=== PATIENT | female | born 1960 | race Caucasian/White ===

== ENCOUNTER 2017-08-19 19:33 | Emergency (ER) | payer BC, OTHER ==
[~2017-08-19] VITALS: Ht 170.2 cm; Wt 90.7 kg
--- NOTE | 2017-08-19 19:59 | Discharge Summary ---
NO DICTATION. 14 Seconds. Intended as right hand. The intended as right hand. Job#: [id number]
[2017-08-19] MEDS ORDERED: HYDROCODONE/APAP 10MG-325MG TAB PO ONE (20:45)
--- NOTE | 2017-08-19 23:09 | Diagnostic Imaging Report ---
EXAM: FOREARM LEFT 2 VIEW, WRIST COMPLETE LEFT, AP and lateral and oblique INDICATION: Fall off of ladder, left wrist and forearm pain COMPARISON: None FINDINGS: BONES: Acute, comminuted, intra-articular fracture through the distal radius with dorsal angulation of the distal fracture fragment. Acute, mildly displaced fracture through the base of the ulnar styloid process. JOINTS: No malalignment. SOFT TISSUES: Normal IMPRESSION: Acute, comminuted, intra-articular impaction type fracture of the distal left radius with dorsal angulation of the distal fracture fragment. Acute, mildly displaced fracture through the base of the ulnar styloid process. No additional fractures of the left forearm. Signed by: Dr. Norma Fried M.D. on 08/19/2017 11:06 PM
[2017-08-20] MEDS ORDERED: ONDANSETRON HCL INJ 2 MG/ML VIAL IV PRN (00:45)
[2017-08-20] MEDS ORDERED: FENTANYL CITRATE/PF 100MCG/2 ML INJ IV ONE (00:45)
[2017-08-20 01:49] VITALS: BP 106/72
--- NOTE | 2017-08-20 02:00 | Diagnostic Imaging Report ---
Exam: Left wrist August 20, 2017 at 0127 hours Indication: Status post reduction Comparison: August 19, 2017 at 2205 hours left wrist x-ray Findings: See impression Impression: Improved alignment status post reduction of the comminuted, displaced, intra-articular fracture of the distal left radius. Stable appearance of mildly displaced fracture through the base of the ulna styloid process. Interval cast placement. Signed by: Dr. Norma Fried M.D. on 08/20/2017 1:57 AM
[2017-08-21] MEDS ORDERED: NORCO 10-325 T1 EACH PO (16:47)
[2017-08-21] MEDS ORDERED: PRAVASTATIN SOD40 MG PO (16:49)
[2017-08-21] MEDS ORDERED: FOLIC ACID1 MG PO (16:49)
[2017-08-21] MEDS ORDERED: LYRICA100 MG PO (16:50)
[2017-08-21] MEDS ORDERED: CYCLOBENZAPRINE10 MG PO (16:50)
[2017-08-21] MEDS ORDERED: LOSARTAN POTAS100 MG PO (16:50)
[2017-08-21] MEDS ORDERED: MELOXICAM15 MG PO (16:51)
[2017-08-21] MEDS ORDERED: LEVOTHYROXINE112 MCG PO (16:51)
[2017-08-21] MEDS ORDERED: TYLENOL WITH C1 EACH PO (16:52)
== END 2017-08-20 01:58 | disposition home or self-care (01) ==
LOC: ER 19:33
DX: S52.592A Other fractures of lower end of left radius, initial encounter for closed fracture (principal); S52.612A Displaced fracture of left ulna styloid process, initial encounter for closed fracture; W11.XXXA Fall on and from ladder, initial encounter; Y92.008 Other place in unspecified non-institutional (private) residence as the place of occurrence of the external cause
CPT/HCPCS: 25605; 73090; 73100; 73110; 99283; J2405

== ENCOUNTER → 2017-08-22 | Day surgery (SDC) | payer BC ==
[~2017-08-22] MED LIST: ACETAMINOPHEN 1000 MG/100 ML IV ONE; BACITRACIN 50,000 UNIT VIAL ONE; BUPIVACAINE HCL 0.5% INJ 30 ML VIAL INJ ONE; CEFAZOLIN SOD 2 GM/D5W 50ML 50 ML IV ONE; CYCLOBENZAPRINE10 MG PO; DEXAMETHASONE SOD PHOS INJ 4 MG/ML VIAL ONE; EPHEDRINE SULFATE INJ 50 MG/10 ML SYR ONE; FENTANYL CITRATE/PF 100MCG/2 ML INJ ONE; FOLIC ACID1 MG PO; LEVOTHYROXINE112 MCG PO; LIDOCAINE HCL 2% LOCAL INJ 5 ML SDV VIAL INJ ONE; LOSARTAN POTAS100 MG PO; LYRICA100 MG PO; MELOXICAM15 MG PO; MIDAZOLAM HCL 2 MG/2 ML VIAL ONE; MORPHINE SULFATE INJ 10 MG/ML ONE; MUPIROCIN 2% OINT 22 GM TUBE ONE; NORCO 10-325 T1 EACH PO; ONDANSETRON HCL INJ 2 MG/ML VIAL ONE; PRAVASTATIN SOD40 MG PO; PROPOFOL IV EMULSION 10 MG/ML 20 ML VIAL ONE; ROCURONIUM BROMIDE 10 MG/ML 5ML VIAL ONE; SEVOFLURANE INHAL SOLN 250 ML PEN BTL ONE; TYLENOL WITH C1 EACH PO
--- OUTSIDE RECORDS SUMMARY | 2017-08-22 10:40 | XMS REPORT ---
[facility] Address Unknown Phone Unavailable Care Team Providers Care Hands Assembler Name Role Phone MADELYN VELÁSQUEZ Unavailable Unavailable Problems This patient has no known problems. Allergies, Adverse Reactions, Alerts This patient has no known allergies or adverse reactions. Medications This patient has no known medications. Results Test Description Test Time Test Comments Text Results Atomic Results Result Comments WRIST LEFT 2 VIEWS [place] [address] Patient Name: DUNG BURTON MR #: [id number] : 1960 Age/Sex: 57/F Req #: [id number] Adm Physician: Ordered by: MADELYN VELÁSQUEZ MD Report #: [id number] Location: ER Room/Bed: ___ Procedure: [id number] DX/WRIST LEFT 2 VIEWS Exam Date: Exam Time: REPORT STATUS: Signed Exam: Left wrist August at 0127 hours Indication: Status post reduction Comparison: August at 2205 hours left wrist x-ray Findings: See impression Impression: Improved alignment status post reduction of the comminuted, displaced, intra-articular fracture of the distal left radius. Stable appearance of mildly displaced fracture through the base of the ulna styloid process. Interval cast placement. Signed by: Dr. Thony Fried M.D. on 08/20/2017 1:57 AM Dictated By: THONY FRIED MD 6 Transcribed By: KIM on 156 COPY TO: MADELYN VELÁSQUEZ MD FOREARM LEFT [address] [facility] [address] [address] Patient Name: DUNG BURTON MR #: [id number] : 1960 Age/Sex: 57/F Req #: [id number] Adm Physician: Ordered by: MANDY SILVERMAN NP Report #: [id number] Location: ER Room/Bed: Procedure: [id number] DX/FOREARM LEFT 2 VIEW Exam Date: 08/19/17 Exam Time: 2210 REPORT STATUS: Signed EXAM: FOREARM LEFT 2 VIEW, WRIST COMPLETE LEFT, AP and lateral and oblique INDICATION: Fall off of ladder, left wrist and forearm pain COMPARISON: None FINDINGS: BONES : Acute, comminuted, intra-articular fracture through the distal radius with dorsal angulation of the distal fracture fragment. Acute, mildly displaced fracture through the base of the ulnar styloid process. JOINTS: No malalignment. SOFT TISSUES: Normal IMPRESSION: Acute, comminuted, intra-articular impaction type fracture of the distal left radius with dorsal angulation of the distal fracture fragment. Acute, mildly displaced fracture through the base of the ulnar styloid process. No additional fractures of the left forearm. Signed by: Dr. Thony Fried M.D. on 08/19/2017 11:06 PM Dictated By: THONY FRIED MD 05 Transcribed By: KIM on 08/19/172305 COPY TO: MANDY SILVERMAN NP WRIST COMPLETE LEFT [facility] [address] [address] Patient Name: DUNG BURTON MR #: [id number] : 1960 Age/Sex: 57/F Req #: [id number] Adm Physician: Ordered by: MADELYN VELÁSQUEZ MD Report #: [id number] Location: ER Room/Bed: ___ Procedure: [id number] DX/WRIST COMPLETE LEFT Exam Date: 08/19/17 Exam Time: 2210 REPORT STATUS: Signed EXAM: FOREARM LEFT 2 VIEW, WRIST COMPLETE LEFT, AP and lateral and oblique INDICATION: Fall off of ladder, left wrist and forearm pain COMPARISON: None FINDINGS: BONES: Acute, comminuted, intra-articular fracture through the distal radius with dorsal angulation of the distal fracture fragment. Acute, mildly displaced fracture through the base of the ulnar styloid process. JOINTS: No malalignment. SOFT TISSUES: Normal IMPRESSION: Acute, comminuted, intra-articular impaction type fracture of the distal left radius with dorsal angulation of the distal fracture fragment. Acute, mildly displaced fracture through the base of the ulnar styloid process. No additional fractures of the left forearm. Signed by: Dr. Thony Fried M.D. on 08/19/2017 11:06 PM Dictated By: THONY FRIED MD 05 Transcribed By: KIM on 08/19/172305 COPY TO: MADELYN VELÁSQUEZ MD
--- OUTSIDE RECORDS SUMMARY | 2017-08-22 10:40 | XMS REPORT | Continuity of Care Document ---
Author Author [facility] Organization [facility] Address [address] [place] [address] Phone Unavailable Care Team Providers Care Hand Silvering Supervisor Name Role Phone MEHRDAD BLANCHARD MD PCP Insurance Providers Guarantor Ailyn Beckett [address] [place] [address] Email NONE [facility] Policy Number [id number] Subscriber's Name Ailyn Beckett Relationship 18 Self / Same As Patient Group Number [id number] Group Name MONI MAC Vaishnavi Effective Date 17 Advance Directives Directive Response Recorded Date/Time Does the patient have an advance directive? No 10/13/09 9:39am If yes, is advance directive on file with [facility]? No 10/13/09 9:39am If not on file with [facility] will patient provide a copy? No 08/20/17 12:34am Do you have a Directive to Physician? No 08/20/17 12:34am Do you have a Medical Power of Beet Worker? No 08/20/17 12:34am Do you have an out of hospital Do Not Resuscitate Order? No 08/20/17 12:34am Do you have any special needs we should be aware of? No 08/20/17 12:34am Do you have a support person here with you today? Yes 08/20/17 12:34am Did patient receive Notice of Privacy Practices? Yes 08/20/17 12:34am Did patient receive patient rights and responsibilities? Yes 08/20/17 12:34am Problems No problem information available. Medications No medication information available. Social History Smoking Status Start Date Stop Date Current every day smoker Hospital Discharge Instructions No hospital discharge instruction information available. Plan of Care Discharge Date 08/20/17 1:58am Disposition HOME, SELF-CARE Condition at Discharge Stable Instructions/Education Provided Fractures - Forearm Sling - Wearing Forms Provided Work/School Excuse Prescriptions See Medication Section Referrals MEHRDAD BLANCHARD MD Address: [address] [place] [address] [id number] COLT CONSTANTINO MD Address: [address] [place] [address] [address] [place] [address] Additional Instructions/Education 1. follow up with orthopedic doctor in 1-2 days without fail 2. return to ed as needed 3. splint sling Functional Status No functional status information available. Allergies, Adverse Reactions, Alerts Allergen Type Severity Reaction Status Last Updated Methocarbamol Allergy Intermediate Active 08/19/17 Sulfamethoxazole Allergy Unknown Active 08/19/17 Trimethoprim Allergy Unknown Active 08/19/17 Metronidazole Allergy Intermediate Active 08/19/17 Immunizations No immunization information available. Vital Signs Acute Vital Signs Vital Response Date/Time Pulse Pulse Rate (adult) 79 bpm (60 - 90) 08/20/2017 1:49am Respiratory Rate 18 bpm (12 - 24) 08/20/2017 1:49am Blood Pressure 106/72 mm Hg 08/20/2017 1:49am Height 5 ft 7 in 08/19/2017 8:49pm Weight 200 lb 08/19/2017 8:49pm Body Mass Index 31.3 kg/m^2 08/19/2017 8:49pm Results No relevant diagnostic test, laboratory data and/or discharge summary information available. Procedures No procedure information available. Encounters Encounter Location Arrival/Admit Date Discharge/Depart Date Attending Provider Departed Emergency Room [facility] 08/19/17 7:33pm 1:58am MADELYN VELÁSQUEZ MD
--- NOTE | 2017-08-24 00:36 | Operative Report ---
DATE OF PROCEDURE: August 22, 2017 PREOPERATIVE DIAGNOSES 1. Comminuted, displaced left distal radius fracture. 2. Acute carpal tunnel syndrome. POSTOPERATIVE DIAGNOSES 1. Comminuted, displaced left distal radius fracture. 2. Acute carpal tunnel syndrome. OPERATIONS/PROCEDURES PERFORMED: Patient underwent: 1. Open reduction internal fixation of a left comminuted distal radius fracture with dorsal plate fixation. 2. Percutaneous pinning of left distal radius fracture. 3. Allograft bone grafting, left distal radius fracture. 4. Left carpal tunnel release. GEAR HOBBER OPERATOR: None. ANESTHESIA: General endotracheal intubation anesthesia. IV FLUIDS: Per the anesthesia record. BRIEF DESCRIPTION OF PATIENT'S OPERATIVE PROCEDURE: Ms. Beckett was taken to the operating room and placed in the supine position on operating room table. Following induction of general anesthesia as well as endotracheal intubation, the patient's left upper extremity was examined under anesthesia. She was found to have a moderately swollen left distal radius with significant swelling into the palm of the hand. Fluoroscopic evaluation of the wrist joint demonstrated a markedly comminuted distal radius fracture with significant dorsal comminution and displacement. There was also a large radial styloid fracture fragment. Prior to surgery, the patient was examined in the preoperative area and patient was found to have progressive numbness and tingling involving her thumb, index, and long finger when compared to her preoperative evaluation in the office. The patient's upper extremity was prepped and draped in standard surgical fashion. The case was begun by attempting a closed reduction of the patient's wrist fracture. This was unsuccessful in reducing the patient's fracture fragments. A dorsal approach was chosen given the degree of comminution and instability dorsally. The incision was carried in the midportion of the wrist, extended proximally over the distal aspect of the radius. This incision was carried through skin only. Blunt dissection was used to deepen the incision to the level of the 4th dorsal wrist compartment. The 4th dorsal compartment was opened and the common extensor tendons were retracted in an ulnar direction. The 3rd dorsal wrist compartment was also opened and the extensor tendon for the thumb was also retracted and protected throughout the remainder of the case. This revealed the markedly displaced distal radius fracture. Case was begun by reducing the radial styloid fracture to the shaft, and a single 0.062 K-wire was used to pin that fragment to the shaft. A 2nd temporary pin was placed beginning at the ulnar styloid and translating just inferior to the articular surface. At this time, a [place] was used to elevate the impacted articular surface to create a more congruent articular surface of the distal radius. Once this was achieved, the wound was copiously irrigated and allograft bone graft was placed in a large defect in the dorsum of the wrist joint. The dorsal cortical surface of the radius was then reduced and a dorsal plate was chosen and affixed to the distal radius transfixing the fracture in its reduced position as well as reducing the large amount of dorsal comminution. This plate was affixed to the distal radius with combination of cortical and locking screws. Repeat fluoroscopic evaluation of the wrist joint demonstrated marked improvement in the alignment of the articular surface with reduction of the radial styloid fracture fragment with some continued volar comminution. The wound was again irrigated. The 3rd and 4th extensor compartments were closed loosely. The wound was closed in a multilayer fashion. Attention was then turned to the volar surface of the patient's hand. The patient had marked swelling and bruising into the palm of the hand. An incision was created along the thenar palmar crease. This incision was carried through the skin only. Blunt dissection was used to deepen the incision to the level of the transverse carpal ligament. The distal edge of the transverse carpal ligament was easily identified and a Norfolk was placed beneath the ligament. The ligament was then released in its entirety. The floor of the carpal canal was evaluated and found to have no abnormalities. Blood and hematoma were expressed from the carpal canal at the time of the carpal tunnel release. This wound was then closed in a single layer fashion. Sterile dressings were applied, and the patient was then provided a well-padded sugar tong splint, awakened and taken to the postanesthesia care unit in stable condition. Job#: [id number]
== END | disposition home or self-care (01) ==
LOC: OR 10:38
PROVIDERS: ATTEND Specialist
DX: S52.572A Other intraarticular fracture of lower end of left radius, initial encounter for closed fracture (principal); G56.02 Carpal tunnel syndrome, left upper limb; I10 Essential (primary) hypertension; E03.9 Hypothyroidism, unspecified; K29.70 Gastritis, unspecified, without bleeding; R53.1 Weakness; M19.90 Unspecified osteoarthritis, unspecified site; F17.210 Nicotine dependence, cigarettes, uncomplicated; Z88.1 Allergy status to other antibiotic agents; Z88.3 Allergy status to other anti-infective agents; Z88.8 Allergy status to other drugs, medicaments and biological substances; W11.XXXA Fall on and from ladder, initial encounter; Z01.810 Encounter for preprocedural cardiovascular examination; Z68.32 Body mass index [BMI] 32.0-32.9, adult
CPT/HCPCS: 25608; 64721; 93005; C1713 ×4; J1100; J2001; J2250; J2270; J2405; 76001

== ENCOUNTER → 2017-10-31 | Outpatient (RCR) | payer BC ==
[~2017-10-31] MED LIST changes: -ACETAMINOPHEN 1000 MG/100 ML IV ONE; -BACITRACIN 50,000 UNIT VIAL ONE; -BUPIVACAINE HCL 0.5% INJ 30 ML VIAL INJ ONE; -CEFAZOLIN SOD 2 GM/D5W 50ML 50 ML IV ONE; -DEXAMETHASONE SOD PHOS INJ 4 MG/ML VIAL ONE; -EPHEDRINE SULFATE INJ 50 MG/10 ML SYR ONE; -FENTANYL CITRATE/PF 100MCG/2 ML INJ ONE; -LIDOCAINE HCL 2% LOCAL INJ 5 ML SDV VIAL INJ ONE; -MIDAZOLAM HCL 2 MG/2 ML VIAL ONE; -MORPHINE SULFATE INJ 10 MG/ML ONE; -MUPIROCIN 2% OINT 22 GM TUBE ONE; -ONDANSETRON HCL INJ 2 MG/ML VIAL ONE; -PROPOFOL IV EMULSION 10 MG/ML 20 ML VIAL ONE; -ROCURONIUM BROMIDE 10 MG/ML 5ML VIAL ONE; -SEVOFLURANE INHAL SOLN 250 ML PEN BTL ONE
== END ==
LOC: OT 10-15 15:56
PROVIDERS: ATTEND Specialist
DX: S52.592D Other fractures of lower end of left radius, subsequent encounter for closed fracture with routine healing (principal); M25.532 Pain in left wrist; M25.632 Stiffness of left wrist, not elsewhere classified; R53.1 Weakness
CPT/HCPCS: 97139

== ENCOUNTER 2017-11-28 11:00 | Outpatient (RCR) | payer BC | END 2017-11-30 | LOC: OT 11:00 | PROVIDERS: ATTEND Specialist | DX: S52.592D Other fractures of lower end of left radius, subsequent encounter for closed fracture with routine healing (principal); M25.532 Pain in left wrist; M25.632 Stiffness of left wrist, not elsewhere classified; R53.1 Weakness ==

== ENCOUNTER 2017-12-26 16:00 | Outpatient (RCR) | payer BC | END 2017-12-31 | LOC: OT 16:00 | PROVIDERS: ATTEND Specialist | DX: S62.102A Fracture of unspecified carpal bone, left wrist, initial encounter for closed fracture (principal) | CPT/HCPCS: 97139 ==

== ENCOUNTER 2018-01-16 12:00 | Outpatient (RCR) | payer BC | END 2018-01-31 | LOC: OT 12:00 | PROVIDERS: ATTEND Specialist | DX: S62.102A Fracture of unspecified carpal bone, left wrist, initial encounter for closed fracture (principal) | CPT/HCPCS: 97139 ==

== ENCOUNTER → 2019-05-29 | Outpatient (CLI) | payer BC, OTHER ==
[~2019-05-29] MED LIST changes: +ALLERGY PO; +ATORVASTATIN CA20 MG PO; +BENICAR20 MG PO; +IOPAMIDOL 370 MG/ML 200 ML INFUS..BTL INJ ONE; +METFORMIN HCL500 MG PO; +MULTI-VITAMIN1 EACH PO; +OMEPRAZOLE40 MG PO; +ORPHENADRINE C100 MG PO; +SODIUM CHLORIDE 0.9% 50ML 50 ML ONE; +SUPER B-50 COM1 EACH PO; +VITAMIN B-121000 MC2 PO; +VITAMIN D34000 UNIT PO
[2019-05-29 09:57] LABS: BLOOD UREA NITROGEN 11 mg/dL (7-26); BUN/CREATININE RATIO 13 (6-25); CREATININE, SERUM 0.87 mg/dL (0.57-1.11); EST GLOMERULAR FILTRATION RATE > 60 ML/MIN (60-)
--- NOTE | 2019-05-29 10:40 | Diagnostic Imaging Report ---
CT of the abdomen and pelvis History: Right upper quadrant pain Comparison: None available. Technique: Multidetector CT scanning of the abdomen and pelvis was performed from the level of the lung bases to the inferior pubic ramus, with IV contrast. DOSE REDUCTION: The examination was performed according to departmental dose-optimization program which includes automated exposure control, adjustment of the mA and/or kV according to patient size and/or use of iterative reconstruction technique. Discussion: The lung bases demonstrate dependent atelectasis. No focal hepatic lesions are identified. The gallbladder is present and nondistended. No radiopaque gallstones are identified. There is no intrahepatic or extrahepatic biliary dilatation. The spleen is within normal limits. The bilateral adrenal glands are unremarkable. The pancreas is homogeneous in attenuation. There is no pancreatic ductal dilatation or peripancreatic inflammatory stranding. The kidneys are normal in size. No hydroureteronephrosis bilaterally. No renal calculi identified. The stomach, small, and large bowel are nondistended. There is no bowel wall thickening. There is no evidence of obstruction. There is no free intraperitoneal air or ascites. The urinary bladder is within normal limits. The uterus and bilateral adnexa are unremarkable. The abdominal aorta is of normal caliber. There are no acute osseous abnormalities. Mild multilevel degenerative changes of the lumbar spine spine. A thoracic spinal stimulator is in place. IMPRESSION: No CT evidence of acute abdominal or pelvic pathology. Signed by: Jono Jones MD on 05/29/2019 10:37 AM
== END ==
LOC: CT 08:13
PROVIDERS: ATTEND Internal Medicine Gastroenterology
DX: R10.11 Right upper quadrant pain (principal)
CPT/HCPCS: 36415; 74177; 82565; 84520; Q9967